=== PATIENT | male | born 1950 | race Hispanic/Latino ===

== ENCOUNTER 2016-07-02 08:35 | Observation (INO) | payer SELFPAY ==
[~2016-07-02] VITALS: Ht 167.6 cm; Wt 68.6 kg
--- NOTE | 2016-07-02 08:54 | NUR ---
PT TO ROOM FOR TREATMENT IN STABLE CONDITION
--- NOTE | 2016-07-02 10:08 | NUR ---
PT PROVIDED MEDS ORDERED, RESTS IN THE STRETCHER IN NO ACUTE DISTRESS WITH DTR AT BEDSIDE.
[2016-07-02 10:34] LABS: HEMATOCRIT 39.8 % (39.0-50.0); HEMOGLOBIN 13.2 g/dl (14.0-18.0); IMMATURE GRANULOCYTES 0.2 % (0.0-1.0); MEAN CELL VOLUME 90.9 fL CALC (80.0-100.0); MEAN CORPUSCULAR HGB 30.1 pG CALC (26.0-32.0); MEAN CORPUSCULAR HGB CONC 33.2 g/L CALC (32.0-36.0); NEUT# 2.31 thou/uL (1.82-7.42); RED BLOOD COUNT 4.38 mill/uL (4.70-6.10); RED CELL DISTRI WIDTH 13.4 % (11.5-15.5)
[2016-07-02 10:52] LABS: ALKALINE PHOSPHATASE 74 u/l (38-126); ANION GAP 13 (6-22 (CALC)); BILIRUBIN, TOTAL 0.5 mg/dL (0.0-1.4); BUN 14 mg/dL (8-23); BUN/CREATININE RATIO 17 (12-20 (CALC)); CALCIUM 8.8 mg/dL (8.4-10.2); CARBON DIOXIDE 28 mmol/l (22-30); CHLORIDE 106 mmol/l (95-108); CREATININE 0.8 mg/dL (0.7-1.3); GFR > 60 ML/MIN (>=60 (CALC)); GFR FOR AFR.AMER. > 60 ML/MIN (>=60 (CALC)); GLUCOSE 90 mg/dL (82-115); LIPASE 266 u/l (23-300); POTASSIUM 3.8 mmol/l (3.5-5.1); SGOT/AST 38 u/l (19-48); SGPT/ALT 31 u/l (11-66); SODIUM 143 mmol/l (137-146); TOTAL PROTEIN 7.7 g/dL (6.3-8.2)
[2016-07-02 11:04] LABS: MYOGLOBIN 36 ng/mL (0 - 121)
[2016-07-02 11:39] LABS: URINE BILIRUBIN - DIPSTICK NEGATIVE (NEGATIVE); URINE BLOOD DIPSTICK NEGATIVE (NEGATIVE); URINE CLARITY CLEAR; URINE COLOR YELLOW; URINE GLUCOSE - DIPSTICK NEGATIVE (NEGATIVE); URINE KETONE NEGATIVE (NEGATIVE); URINE LEUK ESTERASE NEGATIVE (NEGATIVE); URINE NITRITE - DIPSTICK NEGATIVE (Negative); URINE PROTEIN - DIPSTICK NEGATIVE (NEG-TRACE); URINE SPECIFIC GRAVITY <=1.005; URINE UROBILINOGEN - DIPSTICK 0.2 E.U./dL (0.2)
--- NOTE | 2016-07-02 13:25 | NUR ---
PT HAS BEEN TO CT AND BACK, AWAITS THOSE RESULTS.
--- NOTE | 2016-07-02 15:25 | NUR ---
PT TAKEN TO ROOM 260 WITHOUT INCIDENT, REPORT WAS TO JED.
--- NOTE | 2016-07-02 15:35 | NUR ---
PT ARRIVED TO FLOOR AT THIS TIME VIA [facility] ACCOMPANIED BY ANKUR RN; PT AMB TO SCALE AND BED WITH STEADY GAIT; PT ORIENTED TO ROOM AND CALL LIGHT SYSTEM; ASSESSMENT COMPLETED AT THIS TIME WITH DANA AT BEDSIDE FOR TRANSLATION; PT C/O THROBBING ABD PAIN THAT COMES AND GOES AND RATES PAIN AT 6 OUT OF 10; TELE APPLIED READING SR 60 PER ED; PT C/O FEELING HUNGRY; PT ENCOURAGED TO CALL FOR ANY ASSISTANCE NEEDED; CALL LIGHT WITHIN REACH; WILL CONTINUE TO MONITOR;
[2016-07-02 15:44] VITALS: BP 121/71
[2016-07-02 18:19] LABS: HEMATOCRIT 40.4 % (39.0-50.0); HEMOGLOBIN 13.2 g/dl (14.0-18.0)
[2016-07-02 19:05] VITALS: BP 128/77
--- NOTE | 2016-07-02 19:30 | NUR ---
BEDSIDE REPORT RECEIVED FROM VI ADKINS. PT RESTING IN BED SUPINE. OCCITAN SPEAKING. C/O MODERATE PAIN TO LEFT ABDOMINAL AREA RADIATING TO GROIN AND UPPER ABDOMEN. RESPIRATIONS EVEN AND UNLABORED. PLAN OF CARE DISCUSSED. PT ENCOURAGED TO VERBALIZE CONCERNS. STATES UNDERSTANDING. SAFETY MESURES IN PLACE. CALL LIGHT SYSTEM REVIEWED AND IN REACH.
[2016-07-03 00:01] VITALS: BP 137/89
--- NOTE | 2016-07-03 00:15 | NUR ---
PT ALSEEP AT THIS TIME. NO SIGNS OF PAIN/DISCOMFORT NOTED. RESPIRATIONS EVEN AND UNLABORED. SAFEY MEASURES IN PLACE. CALL LIGHT WITHIN REACH.
[2016-07-03 01:19] LABS: HEMATOCRIT 39.1 % (39.0-50.0); HEMOGLOBIN 12.9 g/dl (14.0-18.0)
--- NOTE | 2016-07-03 04:13 | NUR ---
PT ASLEEP AT THIS TIME. NO SIGNS OF PAIN OR DISCOMFORT. RESPIRATIONS EVEN AND UNLABORED. SAFETY MEASURES IN PLACE. CALL LIGHT WTIHIN REACH.
[2016-07-03 04:20] VITALS: BP 116/79
[2016-07-03 04:44] LABS: HEMATOCRIT 38.7 % (39.0-50.0); HEMOGLOBIN 12.9 g/dl (14.0-18.0); IMMATURE GRANULOCYTES 0.2 % (0.0-1.0); MEAN CELL VOLUME 90.8 fL CALC (80.0-100.0); MEAN CORPUSCULAR HGB 30.3 pG CALC (26.0-32.0); MEAN CORPUSCULAR HGB CONC 33.3 g/L CALC (32.0-36.0); NEUT# 3.37 thou/uL (1.82-7.42); RED BLOOD COUNT 4.26 mill/uL (4.70-6.10); RED CELL DISTRI WIDTH 13.4 % (11.5-15.5)
[2016-07-03 05:03] LABS: ANION GAP 10 (6-22 (CALC)); BUN 10 mg/dL (8-23); BUN/CREATININE RATIO 12 (12-20 (CALC)); CALCIUM 8.7 mg/dL (8.4-10.2); CARBON DIOXIDE 28 mmol/l (22-30); CHLORIDE 108 mmol/l (95-108); CREATININE 0.8 mg/dL (0.7-1.3); GFR > 60 ML/MIN (>=60 (CALC)); GFR FOR AFR.AMER. > 60 ML/MIN (>=60 (CALC)); GLUCOSE 84 mg/dL (82-115); POTASSIUM 3.9 mmol/l (3.5-5.1); SODIUM 142 mmol/l (137-146)
--- NOTE | 2016-07-03 07:00 | NUR ---
SHIFT CHANGE REPORT FROM AMBROSIO GARCIA AWAKE AND ALERT, C/O LEFT SIDED ABDOMINAL PAIN, IVF INFUSING, TELE MONITOR IN PLACE, WILL CONTINUE TO MONITOR AND ADDRESS CONCERNS, CALL WEST IN REACH.
[2016-07-03 09:25] VITALS: BP 121/66
[2016-07-03 09:35] LABS: HEMOGLOBIN 13.1 g/dl (14.0-18.0)
[2016-07-03 10:58] VITALS: BP 114/70
[2016-07-03] MEDS ORDERED: COLACE100 MG PO (11:33)
[2016-07-03] MEDS ORDERED: DULCOLAX5 MG PO (11:33)
--- NOTE | 2016-07-03 13:10 | NUR ---
Discharge instructions given. Patient verbalizes understanding of same. Discharged in fair condition via Ambulatory to Home with *Other. All belongings sent with pt. DAVID FROM ED CAME AND TRASLATED, PT STATED UNDERSTANDING, ALSO REPORTED HE WIOLD A CAB HOME FAMILY MEMBERS WERE AWAY AT FUNCTION.
== END 2016-07-03 13:03 | disposition home or self-care (01) | DRG 379 ==
LOC: ENPENDDIS → ED 08:35 → EDBD 08:35 → ED 09:07 → ED-I 14:19 → ED 14:20 → MS2 14:21
PROVIDERS: Emergency Medicine; ADMIT Internal Medicine; ATTEND Internal Medicine
DX: K62.5 Hemorrhage of anus and rectum (principal); K64.8 Other hemorrhoids; K59.00 Constipation, unspecified; R10.32 Left lower quadrant pain; R10.31 Right lower quadrant pain
CPT/HCPCS: G0378; S0164